=== PATIENT | female | born 1980 | race Caucasian/White ===

== ENCOUNTER 2017-01-22 10:04 | Emergency (ER) | payer OTHER ==
[~2017-01-22] VITALS: Ht 167.6 cm; Wt 102.1 kg
[2017-01-22] MEDS ORDERED: IV NORMAL SALINE 1,000ML 1,000 ML IV SCH (10:45)
[2017-01-22 11:06] LABS: BASO % 0 % (0-3); EOS # 0.2 x10^3/uL (0.0-0.7); EOS % 2 % (0-3); HEMATOCRIT 34.8 % (36.0-47.0); HEMOGLOBIN 12.1 g/dL (12.0-15.5); LYMPH # 1.6 x10^3/uL (1.0-4.8); LYMPH % 22 % (24-48); MEAN CORPUSCULAR HEMOGLOBIN 33 pg (25-35); MEAN CORPUSCULAR HGB CONC 35 g/dL (31-37); MEAN CORPUSCULAR VOLUME 95 fL (79-100); MONO # 0.4 x10^3/uL (0.0-1.1); MONO % 6 % (0-9); NEUT # 5.2 x10^3uL (1.8-7.7); NEUT % 69 % (31-73); PLATELET COUNT 266 x10^3/uL (140-400); RED BLOOD COUNT 3.66 x10^6/uL (3.50-5.40); RED CELL DISTRIBUTION WIDTH 12.2 % (11.5-14.5); WHITE BLOOD COUNT 7.4 x10^3/uL (4.0-11.0)
[2017-01-22 11:20] LABS: ALBUMIN 2.8 g/dL (3.4-5.0); ALBUMIN/GLOBULIN RATIO 0.8 (1.0-1.7); CALCIUM 8.3 mg/dL (8.5-10.1); CREATININE 0.5 mg/dL (0.6-1.0); GFR 139.6; POTASSIUM 3.6 mmol/L (3.5-5.1); TOTAL BILIRUBIN 0.3 mg/dL (0.2-1.0); TOTAL PROTEIN 6.2 g/dL (6.4-8.2)
[2017-01-22 11:25] LABS: BACTERIA,URINE 0 /HPF (0-FEW); BILIRUBIN,URINE NEG (NEG); CLARITY,URINE HAZY; COLOR,URINE YELLOW; GLUCOSE,URINE NEG (NEG); NITRITE,URINE NEG (NEG); RBC,URINE RARE /HPF (0-2); SQUAMOUS EPITHELIAL CELL,UR FEW /LPF; UROBILINOGEN,URINE 0.2 mg/dL (0.2 mg/dL); WBC,URINE 0 /HPF (0-4)
[2017-01-22] MEDS ORDERED: ACETAMINOPHEN 325 MG TABLET PO ONE (11:45)
[2017-01-22 11:51] VITALS: BP 139/75
[2017-01-22] MEDS ORDERED: AZIT250T PO (11:56)
[2017-01-22] MEDS ORDERED: ALBU8.5H8 INH (11:56)
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
== END 2017-01-22 12:15 | disposition home or self-care (01) ==
LOC: ER 10:04 → EEVIPCON 10:04 → ER 12:15
DX: O9A.212 Injury, poisoning and certain other consequences of external causes complicating pregnancy, second trimester (principal); S06.0X0A Concussion without loss of consciousness, initial encounter; S50.12XA Contusion of left forearm, initial encounter; S50.11XA Contusion of right forearm, initial encounter; S00.11XA Contusion of right eyelid and periocular area, initial encounter; O99.512 Diseases of the respiratory system complicating pregnancy, second trimester; O99.332 Smoking (tobacco) complicating pregnancy, second trimester; O99.212 Obesity complicating pregnancy, second trimester; O99.842 Bariatric surgery status complicating pregnancy, second trimester; J06.9 Acute upper respiratory infection, unspecified; Z3A.23 23 weeks gestation of pregnancy; Y04.0XXA Assault by unarmed brawl or fight, initial encounter; Y93.89 Activity, other specified; Y92.89 Other specified places as the place of occurrence of the external cause; Y99.8 Other external cause status
CPT/HCPCS: 36415; 80053; 81001; 84702; 85025; 99284; J7030

== ENCOUNTER 2017-01-23 11:02 | Emergency (ER) | payer OTHER ==
[~2017-01-23] VITALS: Ht 167.6 cm; Wt 76.7 kg
[~2017-01-23 11:02] MED LIST: ALBU8.5H8 INH; AZIT250T PO
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
[2017-01-23] MEDS ORDERED: ONDANSETRON PF 4 MG/2 ML VIAL. IV ONE (11:30)
[2017-01-23] MEDS ORDERED: IV NORMAL SALINE 1,000ML 1,000 ML IV SCH (11:30)
[2017-01-23 11:44] LABS: BASO % 0 % (0-3); EOS # 0.1 x10^3/uL (0.0-0.7); EOS % 1 % (0-3); HEMATOCRIT 35.2 % (36.0-47.0); LYMPH # 1.3 x10^3/uL (1.0-4.8); LYMPH % 16 % (24-48); MEAN CORPUSCULAR HEMOGLOBIN 33 pg (25-35); MEAN CORPUSCULAR HGB CONC 34 g/dL (31-37); MEAN CORPUSCULAR VOLUME 97 fL (79-100); MONO # 0.4 x10^3/uL (0.0-1.1); MONO % 4 % (0-9); NEUT # 6.5 x10^3uL (1.8-7.7); NEUT % 79 % (31-73); PLATELET COUNT 250 x10^3/uL (140-400); RED BLOOD COUNT 3.65 x10^6/uL (3.50-5.40); RED CELL DISTRIBUTION WIDTH 12.5 % (11.5-14.5); WHITE BLOOD COUNT 8.3 x10^3/uL (4.0-11.0)
[2017-01-23 11:56] LABS: ALBUMIN 2.6 g/dL (3.4-5.0); CALCIUM 8.2 mg/dL (8.5-10.1); CREATININE 0.4 mg/dL (0.6-1.0); DIRECT BILIRUBIN 0.1 mg/dL (0.0-0.2); GFR 180.6; MAGNESIUM 1.8 mg/dL (1.8-2.4); POTASSIUM 3.4 mmol/L (3.5-5.1); TOTAL BILIRUBIN 0.2 mg/dL (0.2-1.0); TOTAL PROTEIN 6.1 g/dL (6.4-8.2)
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
[2017-01-23 13:19] LABS: AMORPHOUS SEDIMENT,UR PRESENT /HPF; BACTERIA,URINE 0 /HPF (0-FEW); BILIRUBIN,URINE NEG (NEG); CLARITY,URINE CLOUDY; COLOR,URINE YELLOW; GLUCOSE,URINE NEG (NEG); NITRITE,URINE NEG (NEG); RBC,URINE RARE /HPF (0-2); SQUAMOUS EPITHELIAL CELL,UR OCC /LPF; UROBILINOGEN,URINE 0.2 mg/dL (0.2 mg/dL); WBC,URINE 0 /HPF (0-4)
[2017-01-23 13:42] LABS: AMPHETAMINE/METHAMPHETAMINE NEG (NEG); BARBITURATES NEG (NEG); BENZODIAZEPINES NEG (NEG); CANNABINOIDS POS (NEG); COCAINE NEG (NEG); METHADONE NEG (NEG); OPIATES NEG (NEG); PHENCYCLIDINE NEG (NEG)
--- NOTE | 2017-01-23 13:54 | EKG ---
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
[2017-01-23 14:15] VITALS: BP 137/73
== END 2017-01-23 14:15 | disposition home or self-care (01) ==
LOC: ER 11:02
DX: O26.892 Other specified pregnancy related conditions, second trimester (principal); O21.9 Vomiting of pregnancy, unspecified; O24.912 Unspecified diabetes mellitus in pregnancy, second trimester; O99.342 Other mental disorders complicating pregnancy, second trimester; R10.9 Unspecified abdominal pain; F41.9 Anxiety disorder, unspecified; Z3A.22 22 weeks gestation of pregnancy; Z98.84 Bariatric surgery status
CPT/HCPCS: 36415; 76815; 80048; 80076; 80307; 81001; 82550; 83690; 83735; 85025; 85610; 85730; 93005; 96361; 96374; 99285; J2405; G0479; J7030

== ENCOUNTER 2017-03-09 03:20 | Emergency (ER) | payer OTHER ==
[~2017-03-09] VITALS: Ht 175.3 cm; Wt 111.6 kg
--- NOTE | 2017-03-09 03:34 | ED.ADGEN ---
Past History Past Medical History: Other Past Surgical History: Gastric Bypass Alcohol Use: Occasionally Drug Use: None Adult General Chief Complaint Chief Complaint ".. I got this epigastric pain... and been vomiting tonight.. I ate chicken soup just like everyone else.. they didnt get sick.. I am 29 week ... but it not cramping pain but burning in my stomach.and up here ( epigastric).. I ve had my gall bladder out... and gastric bypass.. and lost more 175 lbs..in past two years..."." I was over 460 # .. had Diabetes.. HTN.. and all kinds of health problems.. but things got better when I lost all this wt...." This pain just woke me up out sleep..." HPI HPI Patient is a 36 year old female who presents with above hx and complaints of epigastric pain, abdomen pain, dyspnea, nausea and vomiting. Currently no longer vomiting food, just " foam". Pt. denies any bad food, specific ill contacts. Recently moved into area. 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 US there was reportedly normal on last visit. This pt. second . First was C- section. Pt. rates her abdomen pain at 8/ 10. Pt. has hx of polysubstance abuse, Meth,, MJ and Narcotics. Currently states she is clean and been in rehab. and going to counseling. Pt. Denies vaginal discharge, bleeding or fluid. Pt. denies trauma. Pt. does still smoke tobacco. Review of Systems Review of Systems Constitutional: Denies fever or chills [] Eyes: Denies change in visual acuity, redness, or eye pain [] HENT: Denies nasal congestion or sore throat [] Respiratory: Denies cough or shortness of breath [] Cardiovascular: No additional information not addressed in HPI [] GI: complaints of epigastric abdominal pain, nausea, vomiting. Denies bloody stools or diarrhea [] : Denies dysuria or hematuria [] Musculoskeletal: Denies back pain or joint pain [] Integument: Denies rash or skin lesions [] Neurologic: Denies headache, focal weakness or sensory changes [] Endocrine: Denies polyuria or polydipsia [] All other systems were reviewed and found to be within normal limits, except as documented in this note. Family History Family History Non-contributory Current Medications Current Medications Current Medications Medications (Trade) Dose Ordered Sig/Sherman Start Time Stop Time Status Last Admin Dose Admin Aspirin (Aspirin Enteric Coated) 81 mg 1X ONCE 03/09/17 05:30 03/09/17 05:42 DC Aspirin (Children'S Aspirin) 81 mg 1X ONCE 03/09/17 05:45 03/09/17 05:45 DC 03/09/17 05:34 81 MG Famotidine (Pepcid Vial) 20 mg 1X ONCE 03/09/17 03:45 03/09/17 05:14 DC 03/09/17 03:54 20 MG Lactated Ringer's 1,000 ml @ 1,000 mls/hr Q1H 03/09/17 03:45 03/09/17 05:45 DC Ondansetron HCl (Zofran) 4 mg 1X ONCE 03/09/17 03:45 03/09/17 05:14 DC 03/09/17 03:50 4 MG Sodium Chloride 1,000 ml @ 1,000 mls/hr 1X ONCE 03/09/17 04:00 03/09/17 05:14 DC 03/09/17 03:51 1,000 MLS/HR See Nursing for home meds Allergies Allergies Allergies Coded Allergies Type Severity Reaction Last Updated Verified No Known Drug Allergies 01/22/17 No Physical Exam Physical Exam Constitutional:mild distress, non-toxic appearance. [] HENT: Normocephalic, atraumatic, bilateral external ears normal, oropharynx moist, no oral exudates, nose normal. [] Eyes: PERRLA, EOMI, conjunctiva normal, no discharge. [] Neck: Normal range of motion, no tenderness, supple, no stridor. [] Cardiovascular: Tachycardia Heart rate regular rhythm, no murmur [] Lungs & Thorax: Bilateral breath sounds equal apex with scattered wheezes on auscultation [] Abdomen: Bowel sounds hyperactive, soft, epigastric tenderness, no masses, no pulsatile masses. [Old surgery scars. (Gall blader, gastric reduction, C- section. ) HR 150's Skin: Warm, dry, no erythema, no rash. [] Back: No tenderness, no CVA tenderness. [] Extremities: No tenderness, no cyanosis, no clubbing, ROM intact, no edema. [] Neurologic: Alert and oriented X 3, normal motor function, normal sensory function, no focal deficits noted. DTR + 2 patella. Psychologic: Affect anxious, judgement normal, mood normal. [] Current Patient Data Vital Signs Vital Signs Date Time Temp Pulse Resp B/P (MAP) Pulse Ox O2 Delivery O2 Flow Rate FiO2 03/09/17 03:20 97.7 70 18 100 Room Air Lab Results Laboratory Tests Test 03/09/17 03:43 03/09/17 04:10 03/09/17 04:30 White Blood Count 10.0 x10^3/uL (4.0-11.0) Red Blood Count 3.56 x10^6/uL (3.50-5.40) Hemoglobin 11.9 g/dL (12.0-15.5) L Hematocrit 34.2 % (36.0-47.0) L Mean Corpuscular Volume 96 fL (79-100) Mean Corpuscular Hemoglobin 34 pg (25-35) Mean Corpuscular Hemoglobin Concent 35 g/dL (31-37) Red Cell Distribution Width 12.7 % (11.5-14.5) Platelet Count 287 x10^3/uL (140-400) Neutrophils (%) (Auto) 81 % (31-73) H Lymphocytes (%) (Auto) 13 % (24-48) L Monocytes (%) (Auto) 5 % (0-9) Eosinophils (%) (Auto) 2 % (0-3) Basophils (%) (Auto) 0 % (0-3) Neutrophils # (Auto) 8.1 x10^3uL (1.8-7.7) H Lymphocytes # (Auto) 1.3 x10^3/uL (1.0-4.8) Monocytes # (Auto) 0.5 x10^3/uL (0.0-1.1) Eosinophils # (Auto) 0.1 x10^3/uL (0.0-0.7) Basophils # (Auto) 0.0 x10^3/uL (0.0-0.2) Maternal Serum HCG Beta Subunit 9420 mIU/mL (0-6) H Sodium Level 140 mmol/L (136-145) Potassium Level 3.9 mmol/L (3.5-5.1) Chloride Level 106 mmol/L (98-107) Carbon Dioxide Level 23 mmol/L (21-32) Anion Gap 11 (6-14) Blood Urea Nitrogen 14 mg/dL (7-20) Creatinine 0.4 mg/dL (0.6-1.0) L Estimated GFR (Cockcroft-Gault) 180.6 Glucose Level 91 mg/dL (70-99) Calcium Level 8.2 mg/dL (8.5-10.1) L Total Bilirubin 0.3 mg/dL (0.2-1.0) Direct Bilirubin 0.1 mg/dL (0.0-0.2) Aspartate Amino Transferase (AST) 15 U/L (15-37) Alanine Aminotransferase (ALT) 14 U/L (14-59) Alkaline Phosphatase 63 U/L (46-116) Troponin I Quantitative < 0.017 ng/mL (0-0.055) VR-Jam-P-Type Natriuretic Peptide 79 pg/mL (0-124) Total Protein 6.5 g/dL (6.4-8.2) Albumin 2.5 g/dL (3.4-5.0) L Amylase Level 30 U/L (25-115) Lipase 87 U/L (73-393) Prothrombin Time 9.7 SEC (9.4-11.4) Prothrombin Time INR 0.9 (0.9-1.1) PTT 29 SEC (23-33) Urine Collection Type Unknown Urine Color Yellow Urine Clarity Clear Urine pH 6.5 Urine Specific [place] 1.025 Urine Protein Neg (NEG-TRACE) Urine Glucose (UA) Neg mg/dL (NEG) Urine Ketones (Stick) Trace mg/dL (NEG) Urine Blood Trace (NEG) Urine Nitrite Neg (NEG) Urine Bilirubin Neg (NEG) Urine Urobilinogen Dipstick 0.2 mg/dL (0.2 mg/dL) Urine Leukocyte Esterase Neg (NEG) Urine RBC Occ /HPF (0-2) Urine WBC 1-4 /HPF (0-4) Urine Squamous Epithelial Cells Many /LPF Urine Bacteria Few /HPF (0-FEW) Urine Opiates Screen Neg (NEG) Urine Methadone Screen Neg (NEG) Urine Barbiturates Neg (NEG) Urine Phencyclidine Screen Neg (NEG) Urine Amphetamine/Methamphetamine Neg (NEG) Urine Benzodiazepines Screen Neg (NEG) Urine Cocaine Screen Neg (NEG) Urine Cannabinoids Screen Neg (NEG) Urine Ethyl Alcohol Neg (NEG) EKG EKG My interpretation of EKG shows as bigeminy pattern at rate 71. Prolonged Q-T Radiology/Procedures Radiology/Procedures [] Course & Med Decision Making Course & Med Decision Making Pertinent Labs and Imaging studies reviewed. (See chart for details). Pt. noted to developed ventricular pattern on Monitor - Bigeminy- rate now slowed to 55 - 4:15 Hrs. EKG and troponin ordered. Discussed presentation, testing and tx plan with Dr. Walters- messenger floorperson for Dr Hayden. Advised pt to not be directed admit- must go through the ED to re- eval her cardiac status. . Will accept pt. to Dr. Hayden Ob service. 0520 Discussed presentation, testing and tx. plan with Dr. Brice- ED at [facility], advised would accept pt in transfer to ED. 0530. Pt. still rates pain 6/10. [] Final Impression Final Impression 1. Nausea Vomiting 2. Abdomen pain[] 3. Bigeminy- Bradycardia with prolong QT interval 4. 29 weeks Gravid 5. Anemia 6. Tachycardia/ Bradycardia Rhythms 7. Problems: Dragon Disclaimer Dragon Disclaimer This electronic medical record was generated, in whole or in part, using a voice recognition dictation system. SYDNEE FLORES MD Mar 09, 2017 03:34
[2017-03-09] MEDS ORDERED: ONDANSETRON PF 4 MG/2 ML VIAL. IV ONE (03:45)
[2017-03-09] MEDS ORDERED: IV RINGERS SOLUTION,LACTATED 1,000 ML IV SCH (03:45)
[2017-03-09] MEDS ORDERED: FAMOTIDINE 20 MG/2 ML VIAL IVP ONE (03:45)
[2017-03-09] MEDS ORDERED: IV NORMAL SALINE 1,000ML 1,000 ML IV ONE (04:00)
[2017-03-09 04:02] LABS: BASO % 0 % (0-3); EOS # 0.1 x10^3/uL (0.0-0.7); EOS % 2 % (0-3); HEMATOCRIT 34.2 % (36.0-47.0); HEMOGLOBIN 11.9 g/dL (12.0-15.5); LYMPH # 1.3 x10^3/uL (1.0-4.8); LYMPH % 13 % (24-48); MEAN CORPUSCULAR HEMOGLOBIN 34 pg (25-35); MEAN CORPUSCULAR HGB CONC 35 g/dL (31-37); MEAN CORPUSCULAR VOLUME 96 fL (79-100); MONO # 0.5 x10^3/uL (0.0-1.1); MONO % 5 % (0-9); NEUT # 8.1 x10^3uL (1.8-7.7); NEUT % 81 % (31-73); PLATELET COUNT 287 x10^3/uL (140-400); RED BLOOD COUNT 3.56 x10^6/uL (3.50-5.40); RED CELL DISTRIBUTION WIDTH 12.7 % (11.5-14.5)
[2017-03-09 04:12] LABS: ALBUMIN 2.5 g/dL (3.4-5.0); CALCIUM 8.2 mg/dL (8.5-10.1); CREATININE 0.4 mg/dL (0.6-1.0); DIRECT BILIRUBIN 0.1 mg/dL (0.0-0.2); GFR 180.6; POTASSIUM 3.9 mmol/L (3.5-5.1); TOTAL BILIRUBIN 0.3 mg/dL (0.2-1.0); TOTAL PROTEIN 6.5 g/dL (6.4-8.2)
[2017-03-09 04:54] LABS: BACTERIA,URINE FEW /HPF (0-FEW); BARBITURATES NEG (NEG); BENZODIAZEPINES NEG (NEG); BILIRUBIN,URINE NEG (NEG); CANNABINOIDS NEG (NEG); CLARITY,URINE CLEAR; COCAINE NEG (NEG); COLOR,URINE YELLOW; GLUCOSE,URINE NEG (NEG); METHADONE NEG (NEG); NITRITE,URINE NEG (NEG); OPIATES NEG (NEG); PHENCYCLIDINE NEG (NEG); RBC,URINE OCC /HPF (0-2); SQUAMOUS EPITHELIAL CELL,UR MANY /LPF; UROBILINOGEN,URINE 0.2 mg/dL (0.2 mg/dL)
[2017-03-09 04:55] LABS: AMPHETAMINE/METHAMPHETAMINE NEG (NEG)
[2017-03-09] MEDS ORDERED: ASPIRIN 81 MG TAB.CHEW ONE (05:24)
[2017-03-09] MEDS ORDERED: ASPIRIN ENTERIC COATED 81 MG TABLET.DR. PO ONE (05:30)
[2017-03-09 05:40] VITALS: BP 131/62
[2017-03-09] MEDS ORDERED: ASPIRIN 81 MG TAB.CHEW PO ONE (05:45)
--- NOTE | 2017-03-09 07:10 | EKG ---
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
--- NOTE | 2017-03-09 07:10 | EKG ---
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
== END 2017-03-09 05:43 | disposition short-term general hospital (02) ==
LOC: ER 03:20
DX: O26.893 Other specified pregnancy related conditions, third trimester (principal); O21.9 Vomiting of pregnancy, unspecified; R10.13 Epigastric pain; O99.013 Anemia complicating pregnancy, third trimester; O16.3 Unspecified maternal hypertension, third trimester; R00.1 Bradycardia, unspecified; Z3A.29 29 weeks gestation of pregnancy
CPT/HCPCS: 36415; 80048; 80076; 80307; 81001; 82150; 83690; 83735; 83880; 84484; 84702; 85025; 85610; 85730; 86900; 86901; 93005; 96361; 96374; 96375; 99285; J2405; S0028; G0479; J7030

== ENCOUNTER 2017-07-02 15:34 | Emergency (ER) | payer OTHER ==
[~2017-07-02] VITALS: Ht 165.1 cm; Wt 104.3 kg
[2017-07-02] MEDS ORDERED: MORPHINE SULFATE 4 MG/ML DISP.SYRIN. IV/SQ PRN (16:15)
[2017-07-02] MEDS ORDERED: 0.9 % SODIUM CHLORIDE 10 ML DISP.SYRIN. IV PRN (16:15)
--- NOTE | 2017-07-02 16:20 | PHYS DOC ---
Past History Past Medical History: Anxiety, Diabetes, Hypertension Past Surgical History: Cholecystectomy, , Gastric Bypass, Tonsillectomy Alcohol Use: None Drug Use: None Adult General Chief Complaint Chief Complaint: NAUSEA/VOMITING/DIARRHEA HPI HPI She is a pleasant 36-year-old female who is a 003 who had a by vaginal delivery 5 weeks ago who presents with one-day history of nausea vomiting diarrhea to many episodes to count. Patient was in her normal state of health when she woke this morning with increasing crampy lower abdominal pain specifically in the right lower quadrant with presence of 10+ episodes of nonbilious nonbloody emesis, and some crampy abdominal pain. She denies any diarrhea, at this point she's had no sick contacts at home, no recent consumption of raw food, handling of poultry or reptiles. Patient denies recent antibiotics no blood in her stool no mucus. She also denies any travel outside the country. She is not breast-feeding at this time her children are doing well she denies any trauma to her abdomen. Acute pancreatitis. Appendicitis. Acute hepatitis. Peptic ulcer disease. Nonulcer dyspepsia. Irritable bowel disease. 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 Diseases of the right kidney. Right-sided pneumonia. Iwlk-Rauc-Kcvder syndrome Subhepatic or intraabdominal abscess. Perforated viscus. Cardiac ischemia. Black spider envenomation UTI, pyonephritis, kidney stone, abdominal aneurysm, Cholecystitis Cholelithiasis Ascending cholangitis Differential diagnosis considered upon arrival given location of pain in the right lower quadrant suprapubic region. Review of Systems Review of Systems Constitutional: Positive for subjective fevers and chills but nothing measured. Eyes: Denies change in visual acuity, redness, or eye pain [] HENT: Denies nasal congestion or sore throat [] Respiratory: Denies cough or shortness of breath [] Cardiovascular: No additional information not addressed in HPI [] GI: Positive for nausea and abdominal pain described as crampy lower abdomen with vomiting of nonbilious nonbloody emesis, plus diarrhea without constipation or bloody stools. : Denies dysuria or hematuria patient is positive for decreased urinary output patient has some mild clotting and spotting occurring over last 5 weeks Musculoskeletal: Positive for mild crampy lower back pain that began after the nausea and vomiting. Integument: Denies rash or skin lesions [] Neurologic: Denies headache, focal weakness or sensory changes patient feels generally dizzy with standing up quickly.[] Endocrine: Denies polyuria or polydipsia [] All other systems were reviewed and found to be within normal limits, except as documented in this note. Allergies Allergies Allergies Coded Allergies Type Severity Reaction Last Updated Verified No Known Drug Allergies 01/22/17 No Physical Exam Physical Exam Vital signs on the chart at this time are normal except for hypertension which is chronic for patient. Constitutional: Well developed, well nourished, patient is obvious and simply well but is nondiaphoretic, pale in appearance nontoxic in appearance HENT: Normocephalic, atraumatic, bilateral external ears normal, oropharynx very dry with cracked lips no erythema no tonsillar hypertrophy, no oral exudates, nose normal. [] Eyes: PERRLA, EOMI, conjunctiva normal, no discharge. [] Neck: Normal range of motion, no tenderness, supple, no stridor. [] Cardiovascular:Heart rate regular rhythm, no murmur no gallops or rubs specifically no tachycardia noted. [] Lungs & Thorax: Bilateral breath sounds clear to auscultation [] Abdomen: Bowel sounds normal, soft, mildly tender to palpation in the suprapubic and right lower quadrant but no specific Gallegos's or McBurney's point tenderness to palpation no pulsatile masses mildly obese with a protuberant abdomen with noted. Skin: Warm, dry, no erythema, no rash. [] Back: No tenderness, no CVA tenderness. [] Extremities: No tenderness, no cyanosis, no clubbing, ROM intact, no edema. [] Neurologic: Alert and oriented X 3, normal motor function, normal sensory function, no focal deficits noted. [] Psychologic: Patient speaks quietly is mildly anxious but appropriate Current Patient Data Vital Signs Vital Signs Date Time Temp Pulse Resp B/P (MAP) Pulse Ox O2 Delivery O2 Flow Rate FiO2 07/02/17 15:35 97.7 81 18 97 Room Air EKG EKG [] Radiology/Procedures Radiology/Procedures [] [address] [place] [id number] IMAGING REPORT Signed PATIENT: SACHA MARIE ACCOUNT: [id number] : 1980 LOCATION: ER AGE: 36 SEX: F EXAM STATUS: REG ER ORD. PHYSICIAN: EDD TY MD REASON: diffuse lower abdominal pain with nausea and vomiting PROCEDURE: CT ABD PELV W/ IV CONTRST ONLY Indication: Abdominal pain for 4 hours, nausea and vomiting for 3 hours. 5 weeks ago. Gastric bypass in 2016. TECHNIQUE: CT abdomen pelvis with 75 mL of Omnipaque 300 with multiplanar reformats. COMPARISON: None FINDINGS: Heart is normal in size. No pericardial or pleural effusion. Clear lung bases. Geographic area of low-attenuation is seen in segment 4A adjacent to the falciform ligament recess most likely focal fatty infiltration. Liver is normal in morphology. Status post cholecystectomy. Spleen within normal limits. Pancreas and adrenal glands are within normal limits. No hydronephrosis, nephrolithiasis or suspicious renal lesion. No bowel obstruction. Normal appendix. Diffuse fluid-filled bowel loops are seen especially in the colon. Post surgical changes from gastric bypass is seen. No abnormal bowel wall thickening or enhancement. No retroperitoneal or pelvic adenopathy. Uterus is anteverted. Bladder is suboptimally distended however shows no focal lesion. No free pelvic fluid. Ovaries are visualized and are within normal limits. No evidence of free intraperitoneal air. Small omental fat-containing supraumbilical hernia noted. No suspicious bony lesion. IMPRESSION: 1. No acute findings. 2. Diffuse fluid-filled colon and distal small bowel loops, nonspecific. Electronically signed by: Simon Ugalde DO (07/02/2017 5:06 PM) [facility] DICTATED AND SIGNED BY: SIMON UGALDE DO DATE: 07/02/17 1658 CC: EDD TY MD; PCP,NO ~ Course & Med Decision Making Course & Med Decision Making Pertinent Labs and Imaging studies reviewed. (See chart for details) []Patient presents with diffuse abdominal pain cramping nausea vomiting diarrhea that began earlier today. She's had no documented fever just diffuse abdominal pain being 5 weeks . She is not , CBC is normal, patient's CMP is unremarkable except she is mildly dehydrated with an elevated BUN and creatinine is normal, sodium levels mildly elevated at 146. Patient otherwise had normal LFTs and lipase. Laboratory Tests Test 07/02/17 15:43 07/02/17 16:30 POC Urine HCG, Qualitative hcg negative (Negative) White Blood Count 10.0 x10^3/uL (4.0-11.0) Red Blood Count 3.90 x10^6/uL (3.50-5.40) Hemoglobin 11.8 g/dL (12.0-15.5) L Hematocrit 35.6 % (36.0-47.0) L Mean Corpuscular Volume 91 fL (79-100) Mean Corpuscular Hemoglobin 30 pg (25-35) Mean Corpuscular Hemoglobin Concent 33 g/dL (31-37) Red Cell Distribution Width 13.9 % (11.5-14.5) Platelet Count 418 x10^3/uL (140-400) H Neutrophils (%) (Auto) 75 % (31-73) H Lymphocytes (%) (Auto) 16 % (24-48) L Monocytes (%) (Auto) 6 % (0-9) Eosinophils (%) (Auto) 2 % (0-3) Basophils (%) (Auto) 1 % (0-3) Neutrophils # (Auto) 7.4 x10^3uL (1.8-7.7) Lymphocytes # (Auto) 1.6 x10^3/uL (1.0-4.8) Monocytes # (Auto) 0.6 x10^3/uL (0.0-1.1) Eosinophils # (Auto) 0.2 x10^3/uL (0.0-0.7) Basophils # (Auto) 0.1 x10^3/uL (0.0-0.2) Sodium Level 146 mmol/L (136-145) H Potassium Level 3.8 mmol/L (3.5-5.1) Chloride Level 106 mmol/L (98-107) Carbon Dioxide Level 31 mmol/L (21-32) Anion Gap 9 (6-14) Blood Urea Nitrogen 21 mg/dL (7-20) H Creatinine 0.7 mg/dL (0.6-1.0) Estimated GFR (Cockcroft-Gault) 94.7 Glucose Level 130 mg/dL (70-99) H Calcium Level 9.3 mg/dL (8.5-10.1) Total Bilirubin 0.2 mg/dL (0.2-1.0) Direct Bilirubin < 0.1 mg/dL (0.0-0.2) Aspartate Amino Transferase (AST) 20 U/L (15-37) Alanine Aminotransferase (ALT) 22 U/L (14-59) Alkaline Phosphatase 70 U/L (46-116) Total Protein 7.5 g/dL (6.4-8.2) Albumin 3.5 g/dL (3.4-5.0) Lipase 100 U/L (73-393) The course of her evaluation patient had no nausea vomiting here in the emergency part with no diarrheal stools. There is some degree of stress being 5 weeks she does not seem depressed at this time. I will provide her supportive medications fluids and antiemetics and close follow-up with her primary care doctor. Abdomen is soft on last examAcute pancreatitis. Appendicitis. Acute hepatitis. Peptic ulcer disease. Nonulcer dyspepsia. Irritable bowel disease. 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 Diseases of the right kidney. Right-sided pneumonia. Kebp-Fqld-Dwzixw syndrome Subhepatic or intraabdominal abscess. Perforated viscus. Cardiac ischemia. Black spider envenomation UTI, pyonephritis, kidney stone, abdominal aneurysm, Cholecystitis Cholelithiasis Ascending cholangitis is differential diagnosis considered upon arrival. Impression: Nausea vomiting diarrhea Disposition: discharge: I've spoken with the patient and/or caregivers. I've explained the patient's condition, diagnosis and treatment plan based on information available to me at this time. I've answered the patient's and/or caregivers questions and addressed any concerns. The patient and/or caregivers have a good understanding the patient's diagnosis, condition and treatment plan as can be expected at this point. Vital signs have been stabilized. The patient's condition is stable for discharge from the emergency department. The patient will pursue further outpatient evaluation with her primary care provider or other designated consulting physician as outlined in the discharge instructions. Patient and/or caregivers are agreeable to this plan of care and follow-up instructions have been explained in detail. The patient and/or caregivers have received these instructions in written format and expressed understanding of these discharge instructions. The patient and her caregivers are aware that if any significant change in condition or worsening of symptoms should prompt him to immediately return to this of the closest emergency department. If an emergent department is not readily available I would encourage him to call 911. Edith Disclaimer Dragon Disclaimer This electronic medical record was generated, in whole or in part, using a voice recognition dictation system. Departure Departure: Impression: Primary Impression: Nausea vomiting and diarrhea Additional Impression: Abdominal discomfort Disposition: 01 HOME, SELF-CARE Condition: IMPROVED Referrals: PCP,NO (PCP) Patient Instructions: Abdominal Pain (Nonspecific), Diarrhea, Nausea and Vomiting Additional Instructions: discharge: I've spoken with the patient and/or caregivers. I've explained the patient's condition, diagnosis and treatment plan based on information available to me at this time. I've answered the patient's and/or caregivers questions and addressed any concerns. The patient and/or caregivers have a good understanding the patient's diagnosis, condition and treatment plan as can be expected at this point. Vital signs have been stabilized. The patient's condition is stable for discharge from the emergency department. The patient will pursue further outpatient evaluation with her primary care provider or other designated consulting physician as outlined in the discharge instructions. Patient and/or caregivers are agreeable to this plan of care and follow-up instructions have been explained in detail. The patient and/or caregivers have received these instructions in written format and expressed understanding of these discharge instructions. The patient and her caregivers are aware that if any significant change in condition or worsening of symptoms should prompt him to immediately return to this of the closest emergency department. If an emergent department is not readily available I would encourage him to call 911. Scripts Naproxen Sodium (NAPROXEN SODIUM) 275 Mg Tablet 275 MG PO BID for 7 Days, #14 TAB Prov: EDD TY MD 07/02/17 Ondansetron (ZOFRAN ODT) 4 Mg Tab.rapdis 1 TAB SL Q8HRS, #15 TAB Prov: EDD TY MD 07/02/17 Diphenoxylate Hcl/Atropine (LOMOTIL TABLET) 1 Each Tablet 1 TAB PO QID, #20 TAB Prov: EDD TY MD 07/02/17 Hyoscyamine Sulfate (ANASPAZ) 0.125 Mg Tab.rapdis 0.125 MG PO TID for 5 Days, #15 TAB Prov: EDD TY MD 07/02/17 Problem Qualifiers EDD TY MD Jul 02, 2017 16:20
[2017-07-02] MEDS ORDERED: ONDANSETRON PF 4 MG/2 ML VIAL. IV ONE (16:30)
[2017-07-02] MEDS ORDERED: IV NORMAL SALINE 1,000ML 1,000 ML IV SCH (16:30)
[2017-07-02] MEDS ORDERED: KETOROLAC 30 MG/ML VIAL. IV ONE (16:30)
[2017-07-02] MEDS ORDERED: IOHEXOL 300 MG/ML 75 ML VIAL. IV ONE (16:45)
[2017-07-02 17:01] LABS: BASO # 0.1 x10^3/uL (0.0-0.2); BASO % 1 % (0-3); EOS # 0.2 x10^3/uL (0.0-0.7); EOS % 2 % (0-3); HEMATOCRIT 35.6 % (36.0-47.0); HEMOGLOBIN 11.8 g/dL (12.0-15.5); LYMPH # 1.6 x10^3/uL (1.0-4.8); LYMPH % 16 % (24-48); MEAN CORPUSCULAR HEMOGLOBIN 30 pg (25-35); MEAN CORPUSCULAR HGB CONC 33 g/dL (31-37); MEAN CORPUSCULAR VOLUME 91 fL (79-100); MONO # 0.6 x10^3/uL (0.0-1.1); MONO % 6 % (0-9); NEUT # 7.4 x10^3uL (1.8-7.7); NEUT % 75 % (31-73); PLATELET COUNT 418 x10^3/uL (140-400); RED CELL DISTRIBUTION WIDTH 13.9 % (11.5-14.5)
--- NOTE | 2017-07-02 17:08 | RAD ---
Indication: Abdominal pain for 4 hours, nausea and vomiting for 3 hours. 5 weeks ago. Gastric bypass in 2016. TECHNIQUE: CT abdomen pelvis with 75 mL of Omnipaque 300 with multiplanar reformats. COMPARISON: None FINDINGS: Heart is normal in size. No pericardial or pleural effusion. Clear lung bases. Geographic area of low-attenuation is seen in segment 4A adjacent to the falciform ligament recess most likely focal fatty infiltration. Liver is normal in morphology. Status post cholecystectomy. Spleen within normal limits. Pancreas and adrenal glands are within normal limits. No hydronephrosis, nephrolithiasis or suspicious renal lesion. No bowel obstruction. Normal appendix. Diffuse fluid-filled bowel loops are seen especially in the colon. Post surgical changes from gastric bypass is seen. No abnormal bowel wall thickening or enhancement. No retroperitoneal or pelvic adenopathy. Uterus is anteverted. Bladder is suboptimally distended however shows no focal lesion. No free pelvic fluid. Ovaries are visualized and are within normal limits. No evidence of free intraperitoneal air. Small omental fat-containing supraumbilical hernia noted. No suspicious bony lesion. IMPRESSION: 1. No acute findings. 2. Diffuse fluid-filled colon and distal small bowel loops, nonspecific. Electronically signed by: Simon Ugalde DO (07/02/2017 5:06 PM) [facility]
[2017-07-02 17:11] LABS: ALBUMIN 3.5 g/dL (3.4-5.0); ALK PHOS 70 U/L (46-116); ALT (SGPT) 22 U/L (14-59); ANION GAP 9 (6-14); AST (SGOT) 20 U/L (15-37); BLOOD UREA NITROGEN 21 mg/dL (7-20); CALCIUM 9.3 mg/dL (8.5-10.1); CARBON DIOXIDE 31 mmol/L (21-32); CHLORIDE 106 mmol/L (98-107); CREATININE 0.7 mg/dL (0.6-1.0); DIRECT BILIRUBIN < 0.1 mg/dL (0.0-0.2); GFR 94.7; GLUCOSE 130 mg/dL (70-99); LIPASE 100 U/L (73-393); POTASSIUM 3.8 mmol/L (3.5-5.1); SODIUM 146 mmol/L (136-145); TOTAL BILIRUBIN 0.2 mg/dL (0.2-1.0); TOTAL PROTEIN 7.5 g/dL (6.4-8.2)
[2017-07-02 17:15] LABS: BILIRUBIN,URINE NEG (NEG); CLARITY,URINE CLOUDY; COLOR,URINE AMBER; GLUCOSE,URINE NEG (NEG); NITRITE,URINE NEG (NEG); UROBILINOGEN,URINE 1 mg/dL (0.2 mg/dL)
[2017-07-02 17:16] LABS: BACTERIA,URINE 0 /HPF (0-FEW); RBC,URINE TNTC /HPF (0-2); SQUAMOUS EPITHELIAL CELL,UR FEW /LPF
[2017-07-02] MEDS ORDERED: HYOS0.12 PO (17:18)
[2017-07-02] MEDS ORDERED: DIPH1TAB PO (17:18)
[2017-07-02] MEDS ORDERED: ONDA4TAB10 SL (17:18)
[2017-07-02 17:19] LABS: AMORPHOUS SEDIMENT,UR PRESENT /HPF
[2017-07-02] MEDS ORDERED: NAPR275T59 PO (17:19)
[2017-07-02 17:20] VITALS: BP 175/104
--- NOTE | 2017-07-02 17:30 | EKG ---
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
== END 2017-07-02 17:30 | disposition home or self-care (01) ==
LOC: ER 15:34
DX: O90.89 Other complications of the puerperium, not elsewhere classified (principal); R11.2 Nausea with vomiting, unspecified; R19.7 Diarrhea, unspecified; R10.31 Right lower quadrant pain; I10 Essential (primary) hypertension; E11.9 Type 2 diabetes mellitus without complications; F41.9 Anxiety disorder, unspecified; Z90.49 Acquired absence of other specified parts of digestive tract; Z98.890 Other specified postprocedural states; Z98.84 Bariatric surgery status
CPT/HCPCS: 36415; 74177; 80048; 80076; 81001; 81025; 83690; 85025; 93005; 96361; 96374; 96375; 99285; J1885; J2270; J2405; Q9967; J7030

== ENCOUNTER 2018-04-01 11:28 | Emergency (ER) | payer OTHER ==
[~2018-04-01] VITALS: Ht 170.2 cm; Wt 98.3 kg
[~2018-04-01 11:28] MED LIST changes: +ALBU2.5V8 INH; -ALBU8.5H8 INH; +DIPH1TAB PO; +HYOS0.12 PO; +NAPR275T59 PO; +ONDA4TAB10 SL
[2018-04-01] MEDS ORDERED: AZIT250T PO (12:21)
[2018-04-01] MEDS ORDERED: ALBU2.5V8 INH (12:21)
[2018-04-01] MEDS ORDERED: HYDR115S2 PO (12:21)
--- NOTE | 2018-04-01 12:21 | PHYS DOC ---
Past History Past Medical History: Anxiety, Asthma, Diabetes, Hypertension Past Surgical History: Cholecystectomy, , Gastric Bypass, Tonsillectomy, Other Alcohol Use: None Drug Use: None Adult General Chief Complaint Chief Complaint: COUGH HPI HPI Patient is a 37 year old smoker female who presents with complaining of cough for 3 days. Patient complaining of nonproductive cough with shortness of breath , nasal congestion, sore throat, myalgia and pain in her abdomen at the area of ventral hernia repair during episodes of cough. Patient complaining of chills without fever and denies diarrhea, fever, urinary symptom. Patient had sick contacts at home. Review of Systems Review of Systems Constitutional: Denies fever, reports chills [] Eyes: Denies change in visual acuity, redness, or eye pain [] HENT: Reports nasal congestion or sore throat Respiratory: Cough and shortness of breath Cardiovascular: No additional information not addressed in HPI [] GI: Reports abdominal pain, nausea, denies vomiting, bloody stools or diarrhea [ ] : Denies dysuria or hematuria [] Musculoskeletal: Denies back pain or joint pain [] Integument: Denies rash or skin lesions [] Neurologic: Denies headache, focal weakness or sensory changes [] Endocrine: Denies polyuria or polydipsia [] All other systems were reviewed and found to be within normal limits, except as documented in this note. Current Medications Current Medications Current Medications Medications (Trade) Dose Ordered Sig/Sherman Start Time Stop Time Status Last Admin Dose Admin Albuterol/ Ipratropium (Duoneb) 3 ml 1X ONCE 04/01/18 12:30 04/01/18 12:31 04/01/18 12:07 3 ML Allergies Allergies Allergies Coded Allergies Type Severity Reaction Last Updated Verified No Known Drug Allergies 01/22/17 No Physical Exam Physical Exam Constitutional: Well developed, well nourished, mild distress, non-toxic appearance. [] HENT: Normocephalic, atraumatic, bilateral external ears normal, oropharynx moist, no oral exudates, nasal congestion.] Eyes: PERRLA, EOMI, conjunctiva normal, no discharge. [] Neck: Normal range of motion, no tenderness, supple, no stridor. [] Cardiovascular:Heart rate regular rhythm, no murmur [] Lungs & Thorax: Bilateral breath sounds clear to auscultation [] Abdomen: Bowel sounds normal, soft, no tenderness, no masses, no pulsatile masses. [] Skin: Warm, dry, no erythema, no rash. [] Back: No tenderness, no CVA tenderness. [] Extremities: No tenderness, no cyanosis, no clubbing, ROM intact, no edema. [] Neurologic: Alert and oriented X 3, normal motor function, normal sensory function, no focal deficits noted. [] Psychologic: Affect normal, judgement normal, mood normal. [] Current Patient Data Vital Signs Vital Signs Date Time Temp Pulse Resp B/P (MAP) Pulse Ox O2 Delivery O2 Flow Rate FiO2 04/01/18 12:09 99 Room Air 04/01/18 11:28 98.4 82 20 EKG EKG [] Radiology/Procedures Radiology/Procedures [] Course & Med Decision Making Course & Med Decision Making Evaluation of patient in ER showed 37-year-old female patient with history of smoking and asthma complaining of cough and congestion and sore throat and shortness of breath for 2 days and abdominal wall pain during episodes of cough. Dragon Disclaimer Dragon Disclaimer This electronic medical record was generated, in whole or in part, using a voice recognition dictation system. Departure Departure: Impression: Primary Impression: Acute asthmatic bronchitis Additional Impressions: Tobacco abuse Tobacco abuse counseling Disposition: 01 HOME, SELF-CARE (at 1218) Condition: IMPROVED Referrals: PCPKATE (PCP) Patient Instructions: Acute Bronchitis, Smoking Cessation, Tips For Success Additional Instructions: Drink plenty of liquids Follow-up with your primary care physician in 3-5 days Return to ER if not getting better Scripts Azithromycin (ZITHROMAX) 250 Mg Tablet 1 PKG PO UD for infection, #1 PKG Prov: PILAR AVALOS MD 04/01/18 Hydrocodone/Chlorphen P-Stirex (Tussionex Pennkinetic Susp) 115 Ml Jayna.er.12h 5 ML PO BID for cough and congestion, #60 ML Prov: PILAR AVALOS MD 04/01/18 Albuterol Sulfate (PROAIR HFA INHALER) 8.5 Gm Hfa.aer.ad 2 PUFF INH PRN Q6HRS PRN for SHORTNESS OF BREATH, #1 INHALER 0 Refills Prov: PILAR AVALOS MD 04/01/18 Problem Qualifiers PILAR AVALOS MD Apr 01, 2018 12:21
[2018-04-01 12:29] VITALS: BP 140/63
[2018-04-01] MEDS ORDERED: IPRATRPIUM/ALBUTEROL 0.5/2.5MG 3 ML NEBU. NEB ONE (12:30)
== END 2018-04-01 12:25 | disposition home or self-care (01) ==
LOC: ER 11:28
DX: J45.909 Unspecified asthma, uncomplicated (principal); F17.200 Nicotine dependence, unspecified, uncomplicated; F41.9 Anxiety disorder, unspecified; E11.9 Type 2 diabetes mellitus without complications; I10 Essential (primary) hypertension; Z71.6 Tobacco abuse counseling; Z98.84 Bariatric surgery status
CPT/HCPCS: 94640; 99283; J7620

== ENCOUNTER 2018-08-05 13:32 | Emergency (ER) | payer OTHER ==
[~2018-08-05] VITALS: Ht 175.3 cm; Wt 88.5 kg
[~2018-08-05 13:32] MED LIST changes: +HYDR115S2 PO
[2018-08-05 13:35] VITALS: BP 143/86
--- NOTE | 2018-08-05 13:54 | PHYS DOC ---
Past History Past Medical History: Anxiety, Asthma, Diabetes, Hypertension Past Surgical History: Cholecystectomy, , Gastric Bypass, Tonsillectomy, Other Alcohol Use: None Drug Use: None Adult General Chief Complaint Chief Complaint: RING REMOVAL HPI HPI Patient is a 37-year-old female presents complaining of a racing being stuck on her left middle finger. This has been going on for the past 3 days. Patient normally takes the ring off at bedtime to sleep. She did not take it off 3 nights ago and subsequently has been unable to remove the ring. She denies any numbness or tingling. Denies any trauma. Just that there is swelling secondary to the ring being present. Symptoms are mild. Nothing makes the symptoms better or worse.[] Review of Systems Review of Systems Constitutional: Denies fever or chills [] Eyes: Denies change in visual acuity, redness, or eye pain [] HENT: Denies nasal congestion or sore throat [] Respiratory: Denies cough or shortness of breath [] Cardiovascular: No chest pain or palpitations[] GI: Denies abdominal pain, nausea, vomiting, bloody stools or diarrhea [] : Denies dysuria or hematuria [] Musculoskeletal: Denies back pain or joint pain [] Integument: Denies rash or skin lesions [] Neurologic: Denies headache, focal weakness or sensory changes [] Endocrine: Denies polyuria or polydipsia [] All other systems were reviewed and found to be within normal limits, except as documented in this note. Allergies Allergies Allergies Coded Allergies Type Severity Reaction Last Updated Verified No Known Drug Allergies 01/22/17 No Physical Exam Physical Exam Constitutional: Well developed, well nourished, no acute distress, non-toxic appearance. [] HENT: Normocephalic, atraumatic, bilateral external ears normal, oropharynx moist, no oral exudates, nose normal. [] Eyes: PERRLA, EOMI, conjunctiva normal, no discharge. [] Neck: Normal range of motion, no tenderness, supple, no stridor. [] Cardiovascular:Heart rate regular rhythm, no murmur [] Lungs & Thorax: Bilateral breath sounds clear to auscultation [] Abdomen: Not examined[] Skin: Warm, dry, no erythema, no rash. Blister on the dorsal surface of her left long finger, underneath the location of the ring.[] Back: No tenderness, no CVA tenderness. [] Extremities: No tenderness, no cyanosis, no clubbing, ROM intact, mild edema of the left third finger.. [] Neurologic: Alert and oriented X 3, normal motor function, normal sensory function, no focal deficits noted. [] Psychologic: Affect normal, judgement normal, mood normal. [] EKG EKG [] Radiology/Procedures Radiology/Procedures [] Course & Med Decision Making Course & Med Decision Making Pertinent Labs and Imaging studies reviewed. (See chart for details) ED course: Patient arrived, was placed in bed, and tolerated exam well. Patient had her ring removed with a ring cutter. No complications. Patient was discharged in improved condition. Patient was distal neurovascularly intact after the ring was removed[] Dragon Disclaimer Dragon Disclaimer This electronic medical record was generated, in whole or in part, using a voice recognition dictation system. Departure Departure: Impression: Primary Impression: Swelling of middle finger Disposition: HOME, SELF-CARE Condition: IMPROVED Referrals: [facility]CP[facility] (PCP) Patient Instructions: Peripheral Edema Additional Instructions: Follow-up with your regular doctor in 2 days. If you do not have regular doctor a list of local clinics will be provided for you. Return to the ER if worsening pain, swelling, or any other concerns. LINDA HUTSON DO August 05, 2018 13:54
== END 2018-08-05 14:05 | disposition home or self-care (01) ==
LOC: ER 13:32
DX: S60.453A Superficial foreign body of left middle finger, initial encounter (principal); R22.31 Localized swelling, mass and lump, right upper limb; F41.9 Anxiety disorder, unspecified; J45.909 Unspecified asthma, uncomplicated; E11.9 Type 2 diabetes mellitus without complications; E03.9 Hypothyroidism, unspecified; X58.XXXA Exposure to other specified factors, initial encounter; Y93.89 Activity, other specified; Y92.89 Other specified places as the place of occurrence of the external cause; Y99.8 Other external cause status
CPT/HCPCS: 99284

== ENCOUNTER 2018-11-01 08:05 | Emergency (ER) | payer MEDICAID, OTHER ==
[2018-11-01 08:19] VITALS: BP 174/86
[2018-11-01] MEDS ORDERED: SULF1TAB24 PO (08:28)
[2018-11-01] MEDS ORDERED: AMOX1TAB61 PO (08:28)
[2018-11-01] MEDS ORDERED: HYDR-3165 PO (08:29)
--- NOTE | 2018-11-01 08:30 | PHYS DOC ---
Past History Past Medical History: Anxiety, Asthma, Diabetes, Hypertension Past Surgical History: Cholecystectomy, , Gastric Bypass, Tonsillectomy, Other Alcohol Use: None Drug Use: None Adult General Chief Complaint Chief Complaint: EYE PROBLEMS HPI HPI 37-year-old female presents with left eye pain and concern for infection of the periorbital area. For the last 3 or 4 days, the patient has noticed some swelling. Over the last 1 day, the patient feels like swelling around her left eye is much worse. It is now painful to any palpation. There feels like there might be an area that "feels like a zit". She did try to squeeze it but it did not drain. The patient admits to frequently plucking her eyebrows. She has not had a skin infection like this before. She denies fever or chills. She has no other known lesions at this time. Her vision is not affected. Review of Systems Review of Systems Constitutional: Denies fever or chills [] Eyes: Denies change in visual acuity. Left periorbital tenderness and swelling[] HENT: Denies nasal congestion or sore throat [] Respiratory: Denies cough or shortness of breath [] Cardiovascular: No additional information not addressed in HPI [] GI: Denies abdominal pain, nausea, vomiting, bloody stools or diarrhea [] : Denies dysuria or hematuria [] Musculoskeletal: Denies back pain or joint pain [] Integument: Denies rash or skin lesions [] Neurologic: Denies headache, focal weakness or sensory changes [] Endocrine: Denies polyuria or polydipsia [] All other systems were reviewed and found to be within normal limits, except as documented in this note. Allergies Allergies Allergies Coded Allergies Type Severity Reaction Last Updated Verified No Known Drug Allergies 01/22/17 No Physical Exam Physical Exam Constitutional: Well developed, well nourished, no acute distress, non-toxic appearance. [] HENT: Normocephalic, atraumatic, bilateral external ears normal, oropharynx moist, no oral exudates, nose normal. [] Eyes: PERRLA, EOMI, conjunctiva normal, no discharge. [] Neck: Normal range of motion, no tenderness, supple, no stridor. [] Cardiovascular:Heart rate regular rhythm, no murmur [] Lungs & Thorax: Bilateral breath sounds clear to auscultation [] Abdomen: Bowel sounds normal, soft, no tenderness, no masses, no pulsatile masses. [] Skin: Erythematous left periorbital area with slight warmth, but no erythema. There is overlying makeup. [] Back: No tenderness, no CVA tenderness. [] Extremities: No tenderness, no cyanosis, no clubbing, ROM intact, no edema. [] Neurologic: Alert and oriented X 3, normal motor function, normal sensory function, no focal deficits noted. [] Psychologic: Affect normal, judgement normal, mood normal. [] EKG EKG [] Radiology/Procedures Radiology/Procedures [] Course & Med Decision Making Course & Med Decision Making Pertinent Labs and Imaging studies reviewed. (See chart for details) The patient appears to have preseptal cellulitis. It is involving the superior aspect of the left I with left eyebrow involvement. There does not appear to be any extension to the orbit itself. I will place the patient on Bactrim and Augmentin for 7 days. For her pain, I will give her a short course of [place] 5/325. She is stable for discharge at this time. If her condition worsens or if it does not improve, she will return to the emergency room or follow-up with her PCP to consider IV antibiotics. [] Dragon Disclaimer Dragon Disclaimer This electronic medical record was generated, in whole or in part, using a voice recognition dictation system. Departure Departure: Impression: Primary Impression: Preseptal cellulitis of left eye Disposition: 01 HOME, SELF-CARE Condition: STABLE Referrals: PCP,NO (PCP) Patient Instructions: Periorbital Cellulitis Scripts Hydrocodone Bit/Acetaminophen (NORCO 5-325 TABLET) 1 Each Tablet 1 TAB PO PRN Q6HRS PRN for PAIN, #10 TAB 0 Refills Prov: JORGE GOOD DO 11/01/18 Amoxicillin/Potassium Clav (AUGMENTIN 875-125 TABLET) 1 Each Tablet 1 TAB PO BID for cellulitis, #14 TAB Prov: JORGE GOOD DO 11/01/18 Sulfamethoxazole/Trimethoprim (BACTRIM DS TABLET) 1 Each Tablet 1 TAB PO BID for cellulitis, #14 TAB Prov: JORGE GOOD DO 11/01/18 JORGE GOOD DO Nov 01, 2018 08:30
[2018-11-01] MEDS ORDERED: HYDROcodone/APAP 5/325MG 1 TAB TABLET PO ONE (09:00)
== END 2018-11-01 08:34 | disposition home or self-care (01) ==
LOC: ER 08:05
DX: L03.213 Periorbital cellulitis (principal); J45.909 Unspecified asthma, uncomplicated; E11.9 Type 2 diabetes mellitus without complications; I10 Essential (primary) hypertension
CPT/HCPCS: 99283

== ENCOUNTER 2019-05-14 17:09 | Observation (INO) | payer MEDICAID ==
[~2019-05-14] VITALS: Ht 170.2 cm; Wt 92.1 kg
[~2019-05-14 17:09] MED LIST changes: +AMOX1TAB61 PO; +HYDR-3165 PO; +SULF1TAB24 PO
[2019-05-14] MEDS ORDERED: FAMOTIDINE 20 MG/2 ML VIAL IVP ONE (17:45)
[2019-05-14] MEDS ORDERED: IV NORMAL SALINE 1,000ML 1,000 ML IV ONE (17:45)
[2019-05-14] MEDS ORDERED: ONDANSETRON PF 4 MG/2 ML VIAL. IVP ONE (17:45)
--- NOTE | 2019-05-14 17:59 | PHYS DOC ---
Past History Past Medical History: Diabetes (KYREE ONEILL DO) Past Surgical History: Cholecystectomy, , Gastric Bypass, Other Additional Past Surgical Histo: abd hernia repair (KYREE ONEILL DO) Smoking: Cigarettes Alcohol Use: None Drug Use: None (KYREE ONEILL DO) Adult General Chief Complaint Chief Complaint: ABDOMINAL PAIN HPI HPI 38-year-old female presents with report of abdominal distention and pain which started today. Patient reports history of recent bowel resection at [facility] [place] [place]. Patient reports history of prior gastric bypass and reports her bowel became "twisted/intermingled" which caused obstruction. Patient reports they also performed some type of "hernia surgery "in the past. Denies constipation. Reports had a bowel movement earlier today. Reports is chronically on some pain medication for which she took a couple hours ago witho ut relief. Denies any redness, swelling, or drainage at incision sites. Denies known sick contacts. Denies trauma. (KYREE ONEILL DO) Review of Systems Review of Systems Constitutional: Denies fever or chills Eyes: Denies redness or eye pain HENT: Denies nasal congestion or sore throat Respiratory: Denies cough or shortness of breath Cardiovascular: Denies chest pain or palpitations GI: Reports abdominal pain and nausea; denies vomiting : Denies dysuria or hematuria Musculoskeletal: Denies back pain or joint pain Integument: Denies rash or skin lesions Neurologic: Denies headache, focal weakness or sensory changes Complete systems were reviewed and found to be within normal limits, except as documented in this note. (KYREE ONEILL DO) Current Medications Current Medications Current Medications Medications (Trade) Dose Ordered Sig/Sherman Start Time Stop Time Status Last Admin Dose Admin Famotidine (Pepcid Vial) 20 mg 1X ONCE 05/14/19 17:45 05/14/19 17:49 DC Fentanyl Citrate (Fentanyl 2ml Vial) 50 mcg 1X ONCE 05/14/19 17:45 05/14/19 17:49 DC Ondansetron HCl (Zofran) 4 mg 1X ONCE 05/14/19 17:45 05/14/19 17:49 DC Sodium Chloride 1,000 ml @ 1,000 mls/hr 1X ONCE 05/14/19 17:45 05/14/19 18:44 (KYREE ONEILL DO) Allergies Allergies Allergies Coded Allergies Type Severity Reaction Last Updated Verified No Known Drug Allergies 05/14/19 No (KYREE ONEILL DO) Physical Exam Physical Exam Constitutional: Well developed, well nourished, uncomfortable, non-toxic appearance HENT: Normocephalic, atraumatic, oropharynx moist Eyes: Conjunctiva normal, no discharge Neck: Normal range of motion, no tenderness, supple Cardiovascular: Heart rate normal, regular rhythm Lungs & Thorax: Bilateral breath sounds clear to auscultation, no wheezing Abdomen: Soft, periumbilical tenderness, no guarding or rebound tenderness, incision sites clean and dry and intact to lower abdomen which are well healing Skin: Warm, dry, no erythema, no rash, abdominal incision sites as above Back: No tenderness, no CVA tenderness Extremities: No tenderness, ROM intact, no edema Neurologic: Alert and oriented X 3, no focal deficits noted Psychologic: Affect normal, judgment normal (KYREE ONEILL DO) Current Patient Data Vital Signs Vital Signs Date Time Temp Pulse Resp B/P (MAP) Pulse Ox O2 Delivery O2 Flow Rate FiO2 05/14/19 17:15 97.5 73 18 160/91 (114) 100 Room Air (KYREE ONEILL DO) EKG EKG [] (KYREE ONEILL DO) EKG My interpretation EKG shows a sinus bradycardia at 57 bpm. No acute morphology findings (SYDNEE MOORE MD) Radiology/Procedures Radiology/Procedures [] (KYREE ONEILL DO) Radiology/Procedures [address] [address] IMAGING REPORT Signed PATIENT: SACHA MARIE DACCOUNT: [id number] : 1980 LOCATION: ER AGE: 38 SEX: F EXAM STATUS: REG ER ORD. PHYSICIAN: SYDNEE MOORE MD REASON: eval. fob, obstruction, fluid per radiology PROCEDURE: ABDOMEN LTD Limited abdominal ultrasound INDICATION: hernia on CT. Abdominal pain FINDINGS: Tubular infraumbilical ventral hernia is evident without a clear gut signature. No internal vascularity. There is echogenic shadowing material at the hernia neck. Localized tenderness was difficult to assess given patient prior medication. IMPRESSION: Probable fluid-contaning ventral hernia. No definite bowel entrapment. Consider small bowel follow through if high index of clinical suspicion. Electronically signed by: Isabella Hurst MD (05/14/2019 10:50 PM) [id number] DICTATED AND SIGNED BY: ISABELLA HURST MD DATE: 05/14/19 7913 CC: SYDNEE MOORE MD; PCP,NO ~ (SYDNEE MOORE MD) Course & Med Decision Making Course & Med Decision Making Pertinent Labs and Imaging studies reviewed. (See chart for details) Patient with recent abdominal surgery for obstruction and several past abdominal surgeries presents with report of pain to abdomen that started today. Uncontrolled with pain medication. Reports nausea without vomiting. Pain/nausea addressed. IV fluid hydration given. Labs obtained and pending. CT abdomen/pelvis with oral and IV contrast ordered and pending. Sign out given to Dr. Moore for further evaluation and final disposition. Discussed current findings and plan with patient, who acknowledges understanding and agreement. (KYREE ONEILL DO) Course & Med Decision Making Review CT and US with radiology recommend small bowel follow through in AM. Will admit NPO status. Hydration and complete SB follow through in AM. Discussed with Dr. López. Impression: 1. Abdomen Pain 2. Diabetic 3. Tobacco Abuse 4. Hx. Recent Bowel Resection at [facility] 5. Hx of Interment Ileus secondary to multiple adhesions and surgical procedures 6. Hx. Anemia Hgb 8.1, Microcytic 7. Malnutrition Alb 3.0 8. Deconditioned Plan transfer to [facility] if develops full SB Ileus, dependent on SB follow through in AM (SYDNEE MOORE MD) Dragon Disclaimer Dragon Disclaimer This electronic medical record was generated, in whole or in part, using a voice recognition dictation system. (KYREE ONEILL DO) Departure Departure: Impression: Primary Impression: Abdominal pain Disposition: HOME/RESIDENCE PRIOR TO ADM Condition: STABLE Referrals: PCP,KATE (PCP) Edith Disclaimer This chart was dictated in whole or in part using Voice Recognition software in a busy, high-work load, and often noisy Emergency Department environment. It may contain unintended and wholly unrecognized errors or omissions. (SYDNEE MOORE MD) Problem Qualifiers Primary Impression: Abdominal pain Abdominal location: generalized Qualified Codes: R10.84 - Generalized abdominal pain KYREE ONEILL DO May 14, 2019 17:59 SYDNEE MOORE MD May 14, 2019 23:31
[2019-05-14] MEDS ORDERED: IOHEXOL 300 MG/ML 75 ML VIAL. IV ONE (18:45)
[2019-05-14] MEDS ORDERED: IOHEXOL 240 MG/ML 50ML VIAL. PO ONE (18:45)
[2019-05-14 19:19] LABS: U PREG PATIENT NEGATIVE (NEG)
[2019-05-14 19:41] LABS: BACTERIA,URINE 0 /HPF (0-FEW); BILIRUBIN,URINE NEG (NEG); CLARITY,URINE HAZY; COLOR,URINE STRAW; GLUCOSE,URINE NEG (NEG); NITRITE,URINE NEG (NEG); RBC,URINE RARE /HPF (0-2); SQUAMOUS EPITHELIAL CELL,UR FEW /LPF; UROBILINOGEN,URINE 0.2 mg/dL (0.2 mg/dL)
[2019-05-14 19:41] LABS: BASO # 0.1 x10^3/uL (0.0-0.2); BASO % 1 % (0-3); EOS # 0.3 x10^3/uL (0.0-0.7); EOS % 5 % (0-3); HEMATOCRIT 27.1 % (36.0-47.0); HEMOGLOBIN 8.1 g/dL (12.0-15.5); LYMPH # 2.3 x10^3/uL (1.0-4.8); LYMPH % 34 % (24-48); MEAN CORPUSCULAR HEMOGLOBIN 22 pg (25-35); MEAN CORPUSCULAR HGB CONC 30 g/dL (31-37); MEAN CORPUSCULAR VOLUME 72 fL (79-100); MONO # 0.6 x10^3/uL (0.0-1.1); MONO % 9 % (0-9); NEUT # 3.3 x10^3uL (1.8-7.7); NEUT % 51 % (31-73); PLATELET COUNT 333 x10^3/uL (140-400); RED BLOOD COUNT 3.77 x10^6/uL (3.50-5.40); RED CELL DISTRIBUTION WIDTH 25.3 % (11.5-14.5); WHITE BLOOD COUNT 6.6 x10^3/uL (4.0-11.0)
[2019-05-14 19:42] LABS: CALCIUM 7.8 mg/dL (8.5-10.1); CREATININE 0.5 mg/dL (0.6-1.0); GFR 138.1; POTASSIUM 4.1 mmol/L (3.5-5.1)
[2019-05-14 19:47] LABS: ALBUMIN/GLOBULIN RATIO 0.9 (1.0-1.7); MAGNESIUM 2.1 mg/dL (1.8-2.4); TOTAL BILIRUBIN 0.1 mg/dL (0.2-1.0); TOTAL PROTEIN 6.3 g/dL (6.4-8.2)
[2019-05-14 21:06] LABS: ANISOCYTOSIS MOD; HYPOCHROMIA MOD; OVALOCYTES OCC; PLT ESTIMATE ADEQUATE (ADEQUATE); POLYCHROMASIA SLIGHT; SCHISTOCYTES OCC; SPHEROCYTES OCC; TARGET CELLS OCC
--- NOTE | 2019-05-14 21:07 | RAD ---
EXAM: CT Abdomen and Pelvis without IV contrast INDICATION: Abdominal pain. History of gastric bypass and recent bowel resection. TECHNIQUE: Multi-detector row CT images were acquired from the lung bases through the abdomen and pelvis without the use of IV contrast. Sagittal and coronal images were acquired from the transaxial data. All CT scans performed at this facility utilize dose optimization techniques as appropriate to the exam, including the following: Automated exposure control and adjustment of the mA and/or KV according to patient size (this includes techniques or standardized protocols for targeted exams where dose is indication/reason for exam). ORAL CONTRAST: Administered COMPARISON: 07/12/[address] FINDINGS: The absence of IV contrast limits evaluation of soft tissue pathology. LOWER CHEST: Unremarkable LIVER: Unremarkable BILIARY SYSTEM: Gallbladder is surgically absent. Bile ducts are not dilated. PANCREAS: Unremarkable SPLEEN: Unremarkable ADRENALS: Unremarkable KIDNEYS & URETERS: Unremarkable BLADDER: Unremarkable REPRODUCTIVE ORGANS: A 5 cm left adnexal cystic mass with punctate mural calcification and thin internal septation is present as suggestive of a possible cystic teratoma. The visualized uterus on CT is unremarkable. GASTROINTESTINAL: Surgical changes from previous Rebecca-en-Y gastric bypass are present. Enteric contrast opacifies multiple jejunal loops but does not opacify the entire small bowel. There is an unopacified fluid partly distending the excluded gastric remnant in the Y limb. The midline infraumbilical ventral abdominal wall shows soft tissue protruding between the rectus abdominis muscles that is suspicious for possible incarcerated hernia. The appendix is normal. MESENTERY/PERITONEUM/RETROPERITONEUM: Unremarkable VASCULAR: Unremarkable LYMPH NODES: No adenopathy OSSEOUS & SOFT TISSUES: Unremarkable IMPRESSION: 1. Infraumbilical soft tissue between the rectus abdominis muscles following previous surgery is equivocal for possible incarcerated bowel-containing hernia. Consider targeted ultrasound of this area in further evaluation. 2. Possible dermoid cyst in the left adnexa. This can also be further evaluated by pelvic ultrasound as clinically warranted. FOR INTERNAL CODING PURPOSES Critical result: Findings discussed with Dr. Kenton Moore at 05/14/2019 9:03 PM. RESULT CODE: (C) Electronically signed by: Fausto Hurst MD (05/14/2019 9:05 PM) [facility]
[2019-05-14] MEDS ORDERED: IV RINGERS SOLUTION,LACTATED 1,000 ML IV SCH (21:15)
--- NOTE | 2019-05-14 22:53 | RAD ---
Limited abdominal ultrasound INDICATION: hernia on CT. Abdominal pain FINDINGS: Tubular infraumbilical ventral hernia is evident without a clear gut signature. No internal vascularity. There is echogenic shadowing material at the hernia neck. Localized tenderness was difficult to assess given patient prior medication. IMPRESSION: Probable fluid-contaning ventral hernia. No definite bowel entrapment. Consider small bowel follow through if high index of clinical suspicion. Electronically signed by: Fausto Hurst MD (05/14/2019 10:50 PM) [facility]
[2019-05-14] MEDS ORDERED: ONDANSETRON PF 4 MG/2 ML VIAL. IV PRN (23:45)
[2019-05-15 01:30] VITALS: BP 161/80
[2019-05-15] MEDS: MORPHINE SULFATE 10 MG/ML SYRINGE. SQ PRN ×3 (01:48→15:16)
[2019-05-15] MEDS ORDERED: OMEP40CA45 PO (02:30)
[2019-05-15] MEDS ORDERED: SUCR1ORA14 PO (02:30)
[2019-05-15] MEDS ORDERED: OXYC5TAB2 PO (02:30)
[2019-05-15] MEDS: IPRATRPIUM/ALBUTEROL 0.5/2.5MG 3 ML NEBU. NEB SCH ×4 (04:35→20:00)
[2019-05-15 05:41] VITALS: BP 148/77
--- NOTE | 2019-05-15 05:51 | EKG ---
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
[2019-05-15 06:45] LABS: BASO % 1 % (0-3); EOS # 0.3 x10^3/uL (0.0-0.7); EOS % 5 % (0-3); HEMATOCRIT 26.7 % (36.0-47.0); LYMPH # 2.4 x10^3/uL (1.0-4.8); LYMPH % 46 % (24-48); MEAN CORPUSCULAR HEMOGLOBIN 21 pg (25-35); MEAN CORPUSCULAR HGB CONC 30 g/dL (31-37); MEAN CORPUSCULAR VOLUME 71 fL (79-100); MONO # 0.4 x10^3/uL (0.0-1.1); MONO % 8 % (0-9); NEUT % 40 % (31-73); PLATELET COUNT 304 x10^3/uL (140-400); RED BLOOD COUNT 3.75 x10^6/uL (3.50-5.40); RED CELL DISTRIBUTION WIDTH 24.9 % (11.5-14.5); WHITE BLOOD COUNT 5.1 x10^3/uL (4.0-11.0)
[2019-05-15 06:48] LABS: CALCIUM 7.9 mg/dL (8.5-10.1); CREATININE 0.5 mg/dL (0.6-1.0); GFR 138.1; POTASSIUM 4.1 mmol/L (3.5-5.1)
[2019-05-15] MEDS: FAMOTIDINE 20 MG/2 ML VIAL IVP SCH ×2 (07:42→20:28)
[2019-05-15] MEDS ORDERED: IOHEXOL 300 MG/ML 75 ML VIAL. PO ONE (08:45)
[2019-05-15] MEDS ORDERED: KETOROLAC 30 MG/ML VIAL. IVP PRN (11:45)
[2019-05-15 11:49] VITALS: BP 172/79
--- NOTE | 2019-05-15 13:11 | RAD ---
SMALL BOWEL SERIES Clinical Indication: RUQ PAIN/GAS/BLOATING Comparison: CT May 14, 2019 Findings: Preliminary image: Nonobstructive bowel gas pattern.. Stool throughout the colon. Additionally contrast noted within the proximal colon from recent CT. Postop changes left mid abdomen. Surgical clips right upper quadrant. Imaged lung bases are unremarkable. The 0 minute image demonstrates contrast opacification of the duodenum which appears normal in position. There are also multiple opacified loops of jejunum. Multiple lateral images were obtained to evaluate for small bowel hernia. No evidence of contrast within loops of bowel extending anteriorly. Normal caliber small bowel with normal morphology. The 85 minute image demonstrates that contrast has reached the right colon. IMPRESSION: 1. No evidence of ventral bowel containing hernia on small bowel follow-through. Electronically signed by: Felice Nielson DO (05/15/2019 1:09 PM) [id number]
[2019-05-15 15:08] VITALS: BP 163/77
[2019-05-15] MEDS ORDERED: ONDANSETRON PF 4 MG/2 ML VIAL. IVP PRN (17:15)
[2019-05-15] MEDS: IV 1/2 NORMAL SALINE 1,000 ML IV SCH (17:15)
[2019-05-15 19:13] VITALS: BP 159/92
--- NOTE | 2019-05-15 20:09 | HP ---
ADMIT DATE: 05/15/2019 HISTORY OF PRESENT ILLNESS: The patient is a 38-year-old female patient who came to the Emergency Room of [facility] complaining of abdominal pain that started today. The patient reports a history of recent bowel resection at [facility]. The patient reports history of prior gastric bypass and reports her bowel became twisted and mingled which caused obstruction. The patient reports that they also performed some type of hernia surgery in the past. She denies any constipation. Reports has a bowel movement earlier today, reports she is chronically on some pain medication which she took a couple hours ago without relief. Denies any redness, swelling or drainage at the incision site. Denied any known sick contact and denied trauma. She was evaluated in the Emergency Room and she has limited abdominal ultrasound, which showed tubular infraumbilical ventral hernias evident without a clear-cut signature. No internal vascularity. There is echogenic shadowing material at the hernia neck, localized tenderness was difficult to assess given the patient's prior medication. She had had a CT scan of the abdomen and pelvis without IV contrast, which basically showed that the gallbladder is surgically absent. Bile ducts are not dilated. The pancreas, spleen, adrenals, kidneys and ureters, bladder are unremarkable. The gastrointestinal showed surgical changes from previous Rebecca-en-Y gastric bypass are present. Enteric contrast opacified multiple jejunal loops, but does not opacify the entire small bowel. There is an unopacified fluid partly distending the excluded gastric remnant piling the midline. Infraumbilical ventral hernia wall showed soft tissue protruding between the rectus abdominis muscle that is suspicious for possible incarcerated hernia. The appendix is normal and the impression is that the patient has infraumbilical soft tissue between the rectus abdominis muscle following previous surgery equivalent for possible incarcerated bowel containing hernia. Consider targeted ultrasound of this area and further evaluation of possible dermoid cyst of her left adnexa. This can be further evaluated by pelvic ultrasound if clinically warranted. She did have a limited abdominal ultrasound, which showed that probably fluid containing ventral hernia. No definite bowel entrapment. Consider small bowel follow-through as high in this clinical suspicion. The patient did have small bowel series, which showed nonobstructing bowel gas pattern, stool throughout the colon. Additionally, contrast noted within the proximal colon from recent CT, postoperative changes in the left mid abdomen, surgical clips in right upper quadrant. Imaged lung bases are unremarkable and the 0-minute image demonstrates contrast opacification of the duodenum, which appears normal in position. There are also multiple opacified loops of jejunum, multiple lateral images were obtained to evaluate for small bowel hernia. No evidence of contrast within loops of bowel extending anteriorly, normal caliber small bowel with normal morphology. The 85-minute images demonstrated that contrast has reached the right colon. The impression is that there is no evidence of ventral bowel containing hernia on small bowel follow-through. The patient was basically started on a clear liquid diet. We will advance diet as tolerated. We observed her overnight and she remained stable, she can be discharged home. PAST MEDICAL HISTORY: Significant for morbid obesity, hypertension and type 2 diabetes. PAST SURGICAL HISTORY: Significant for gastric bypass surgery, cholecystectomy, 2 C-sections, and incisional abdominal hernia repair. ALLERGIES: She has no known drug allergies. MEDICATIONS: She is currently on oxycodone 5 mg every 4-6 hours, ondansetron 4 mg every 8 hours, sucralfate 1 gram in 10 mL oral suspension 4 times a day and omeprazole 40 mg daily. FAMILY HISTORY: Apparently, her father of lung cancer at the age of 66. Mother has cerebral aneurysm that was treated surgically and apparently has recovered completely without any residual neurological deficit. She has one brother older and apparently healthy. SOCIAL HISTORY: She is engaged and lives with her fiance. She has a son and a daughter. She smokes a pack a day, does not drink alcohol or use any recreational drugs. Currently, she is unemployed. REVIEW OF SYSTEMS: As per history of present illness. PHYSICAL EXAMINATION: GENERAL: When I examined her on arrival to the Emergency Room, the patient looked well and was clearly in no apparent respiratory distress. No pallor, jaundice, cyanosis or thyromegaly. No jugular venous distention. No lower limb edema. VITAL SIGNS: Her heart rate was 73, blood pressure was 160/91, temperature was 97.5, respiratory rate was 18, and oxygen saturation was 100%. HEAD, EYES, EARS, NOSE AND THROAT: Showed normocephalic, atraumatic. NECK: Supple. HEART: Showed normal first and second heart sounds. No gallop or murmur. CHEST: Shows central trachea, equal bilateral chest expansion and air entry, vesicular sounds. No crepitation or rhonchi. ABDOMEN: Distended, soft, nontender. There is no guarding or rigidity. No organomegaly. All hernial orifices intact. Bowel sounds normal. NEUROLOGIC: She is awake, alert, responding appropriately. All cranial nerves intact. EXTREMITIES: She moves her extremities without difficulty. She ambulates without assistance or assistive devices. LABORATORY DATA: Her lab work on arrival showed a white cell count 6600, hemoglobin 8.1, hematocrit 27, MCV 72 and platelet count of 333,000. Her chemistry showed a serum sodium 142, potassium 4.1, chloride 107, bicarbonate 29, anion gap of 6, BUN 15, creatinine 0.5, estimated GFR was 138 mL per minute. Her glucose was 90, lactic acid was 1.6, calcium was 7.8, magnesium was 2.1. Total bilirubin, AST, ALT, alkaline phosphatase were normal. Total protein was 6.3, albumin was 3. Her amylase and lipase were normal. Her prothrombin time, INR and aPTT are normal. Urinalysis showed the urine was straw colored, hazy with a pH of 6.5, specific gravity 1.010. The urine was negative for protein, glucose, ketones, trace of blood, negative for nitrite and bilirubin, trace of leukocyte esterase, rare rbc's, 1-4 wbc's, and no bacteria. Her imaging studies as detailed in the report. ASSESSMENT AND PLAN: In summary, the patient came with abdominal pain, nausea with dry heaves. She has had a bowel movement and the small bowel follow-through showed that there is no evidence of ventral bowel containing hernia. My plan is to start her on a clear liquid diet, advanced as tolerated. I will resume all her medications. Start her on fentanyl and Zofran IV and we will advance her diet tomorrow morning. If she remains asymptomatic, she can be discharged home to follow with her surgical team at [facility]. NICOLE PRATT MD DR: SULTANA/colt JOB#: [id number] / [id number]
[2019-05-15] MEDS: SUCRALFATE 1 GM/10 ML ORAL.SUSP. PO SCH (20:28)
[2019-05-15] MEDS ORDERED: PANTOPRAZOLE 40 MG TABLET. PO SCH (21:00)
[2019-05-16] MEDS: IPRATRPIUM/ALBUTEROL 0.5/2.5MG 3 ML NEBU. NEB SCH (04:45)
[2019-05-16 05:01] VITALS: BP 150/83
[2019-05-16 06:42] LABS: HEMATOCRIT 27.5 % (36.0-47.0); HEMOGLOBIN 8.2 g/dL (12.0-15.5); RED BLOOD COUNT 3.81 x10^6/uL (3.50-5.40); RED CELL DISTRIBUTION WIDTH 24.9 % (11.5-14.5); WHITE BLOOD COUNT 5.3 x10^3/uL (4.0-11.0)
[2019-05-16 06:54] LABS: ALBUMIN 2.9 g/dL (3.4-5.0); CREATININE 0.5 mg/dL (0.6-1.0); GFR 138.1; POTASSIUM 4.3 mmol/L (3.5-5.1); TOTAL BILIRUBIN 0.2 mg/dL (0.2-1.0); TOTAL PROTEIN 5.9 g/dL (6.4-8.2)
[2019-05-16] MEDS: IV 1/2 NORMAL SALINE 1,000 ML IV SCH (07:27)
[2019-05-16] MEDS ORDERED: oxyCODONE IR 5 MG TABLET PO PRN (07:30)
[2019-05-16] MEDS: FAMOTIDINE 20 MG/2 ML VIAL IVP SCH (08:30)
[2019-05-16] MEDS: SUCRALFATE 1 GM/10 ML ORAL.SUSP. PO SCH ×2 (08:30→11:30)
[2019-05-16] MEDS ORDERED: NICOTINE 21MG PATCH. TD SCH (09:00)
[2019-05-16 10:53] VITALS: BP 142/80
--- NOTE | 2019-05-16 14:12 | DS ---
DATE OF DISCHARGE: HOSPITAL COURSE: The patient is resting, slightly propped up in bed, in no apparent distress. She continued to have abdominal pain; however, no nausea, no vomiting. She is tolerating her diet very well and has had extensive investigation done yesterday including CT scan of the abdomen and pelvis, ultrasound of the hernia and then small-bowel follow-through and that showed that there is no evidence of ventral bowel containing hernia on small-bowel follow-through. We did start her on a clear liquid and advance her diet and that she tolerated very well and a decision was made to discharge her home to follow with her primary care physician and surgical team. PHYSICAL EXAMINATION: GENERAL: When I saw her this afternoon, she looked well and was clearly in no apparent respiratory distress. No pallor, jaundice, cyanosis, or thyromegaly. No jugular venous distension. No limb edema. VITAL SIGNS: Her heart rate was 66, blood pressure 142/80, temperature was 97.5, respiratory rate 20, and oxygen saturation was 99%. HEAD, EYES, EARS, NOSE AND THROAT: Showed normocephalic, atraumatic. NECK: Supple. HEART: Showed normal first and second heart sounds. No gallop or murmur. CHEST: Clear to auscultation. No crepitation or rhonchi. ABDOMEN: Distended, soft, nontender. No guarding or rigidity. No organomegaly. All hernial orifice intact. Bowel sounds normal. NEUROLOGIC: She was awake, alert, responding appropriately. All cranial nerves intact. She moves extremities without difficulty. She ambulates without assistance or assistive devices. Her intake was 1000 mL, output was incompletely recorded. LABORATORY DATA: This morning showed a serum sodium 139, potassium 4.3, chloride 104, bicarbonate 29, anion gap of 6, BUN 11, creatinine 0.5, estimated GFR was 138 mL per minute. Her glucose was ____, calcium was 8. Total bilirubin and alkaline phosphatase were normal. AST, ALT slightly elevated. Total protein was 5.9, albumin was 2.9. Her amylase and lipase were normal. Her white cell count was 5300, hemoglobin 8.2, hematocrit 27, MCV 72 and platelet count 251,000. Her prothrombin time, INR and aPTT are normal. Urinalysis was unremarkable. FINAL DISCHARGE DIAGNOSES: Abdominal pain, nausea with dry heaves, but no evidence of bowel obstruction. Other medical problems include morbid obesity, hypertension, type 2 diabetes, all resolved after she underwent the gastric bypass surgery. NICOLE PRATT MD DR: SULTANA/colt JOB#: [id number] / [id number]
== END 2019-05-16 13:37 | disposition home or self-care (01) ==
LOC: ER 17:09 → 1 SOUTH 05-15 00:30 → UNDOADMOB 05-15 01:04 → 1 SOUTH 05-15 01:04
PROVIDERS: ADMIT Internal Medicine; ATTEND Internal Medicine
DX: R10.9 Unspecified abdominal pain (principal); E66.01 Morbid (severe) obesity due to excess calories; I10 Essential (primary) hypertension; E11.9 Type 2 diabetes mellitus without complications; F17.200 Nicotine dependence, unspecified, uncomplicated; R11.0 Nausea; E46 Unspecified protein-calorie malnutrition; Z79.899 Other long term (current) drug therapy; Z87.19 Personal history of other diseases of the digestive system; Z90.49 Acquired absence of other specified parts of digestive tract; Z98.84 Bariatric surgery status
CPT/HCPCS: 36415; 74177; 74250; 76705; 80048; 80053; 81001; 81025; 82150; 83605; 83690; 83735; 85025; 85027; 85610; 85730; 87086; 87186; 93005; 94640; 96372; 96374; 96375; 96376; 99285; 99406; G0238; G0378; J1885; J2270; J2405; J3010; J3490; J7030; J7620; Q9966; Q9967; G0379